=== PATIENT | female | born 1955 | race Asian ===

== ENCOUNTER 2019-08-10 17:04 | Emergency (ER) | payer OTHER ==
[~2019-08-10] VITALS: Ht 154.9 cm; Wt 91.2 kg
[2019-08-10 17:37] VITALS: Ht 154.9 cm; Wt 91.2 kg
[2019-08-10 19:07] LABS: BASOPHIL % 0.4 % (0-2); PLATELET COUNT 262 x10^3mcL (130-400); RED CELL DISTRIBUTION WIDTH 14.4 % (11.5-14.5)
[2019-08-10 19:14] LABS: CALCIUM 8.5 mg/dL (8.5-10.1); CARBON DIOXIDE 30.3 mmol/L (21-32); CHLORIDE SERUM 105 mmol/L (98-107); CREATININE SERUM 0.7 mg/dL (0.6-1.0); GFR1 > 60 mL/min; GLUCOSE SERUM 104 mg/dL (74-106); POTASSIUM SERUM 4.4 mmol/L (3.5-5.1); SODIUM SERUM 141 mmol/L (136-145)
[2019-08-10 19:18] LABS: ALBUMIN 2.9 g/dL (3.4-5.0); ALKALINE PHOSPHATASE 149 U/L (46-116); ALT/SGPT 30 U/L (14-59); AST/SGOT 73 U/L (15-37); BILIRUBIN TOTAL 0.6 mg/dL (0.20-1.00); LIPASE 254 IU/L (73-393); TOTAL PROTEIN, SERUM 8.1 g/dL (6.4-8.2)
[2019-08-10 20:11] LABS: microscopic required? YES; urine erythrocyte NEGATIVE (NEGATIVE)
[2019-08-10 21:48] VITALS: BP 126/66
== END 2019-08-10 21:48 | disposition home or self-care (01) ==
LOC: ED 17:04
PROVIDERS: Emergency Medicine
DX: N39.0 Urinary tract infection, site not specified (principal); K82.9 Disease of gallbladder, unspecified; Z90.710 Acquired absence of both cervix and uterus; Z98.890 Other specified postprocedural states
CPT/HCPCS: J1885; J3490; J7030; Q0092

== ENCOUNTER 2019-08-14 02:15 | Inpatient (IN) | payer OTHER ==
[~2019-08-14] VITALS: Ht 154.9 cm; Wt 91.9 kg
[2019-08-14 02:22] VITALS: Ht 154.9 cm; Wt 91.9 kg
[2019-08-14 02:55] LABS: BASOPHIL % 0.3 % (0-2); PLATELET COUNT 300 x10^3mcL (130-400); RED CELL DISTRIBUTION WIDTH 14.2 % (11.5-14.5)
[2019-08-14 02:57] LABS: CALCIUM 8.8 mg/dL (8.5-10.1); CARBON DIOXIDE 29.6 mmol/L (21-32); CHLORIDE SERUM 104 mmol/L (98-107); CREATININE SERUM 0.6 mg/dL (0.6-1.0); GFR1 > 60 mL/min; GLUCOSE SERUM 116 mg/dL (74-106); POTASSIUM SERUM 3.7 mmol/L (3.5-5.1); SODIUM SERUM 142 mmol/L (136-145)
[2019-08-14 03:02] LABS: ALBUMIN 3.4 g/dL (3.4-5.0); ALKALINE PHOSPHATASE 227 U/L (46-116); ALT/SGPT 107 U/L (14-59); AST/SGOT 238 U/L (15-37); BILIRUBIN TOTAL 1.01 mg/dL (0.20-1.00); LIPASE 128 IU/L (73-393); TOTAL PROTEIN, SERUM 8.9 g/dL (6.4-8.2)
[2019-08-14 06:00] VITALS: BP 100/65
[2019-08-14 07:07] LABS: BASOPHIL % 0.6 % (0-2); PLATELET COUNT 231 x10^3mcL (130-400); RED CELL DISTRIBUTION WIDTH 14.3 % (11.5-14.5)
[2019-08-14 07:23] LABS: CALCIUM 7.8 mg/dL (8.5-10.1); CARBON DIOXIDE 27.1 mmol/L (21-32); CHLORIDE SERUM 109 mmol/L (98-107); CREATININE SERUM 0.6 mg/dL (0.6-1.0); GFR1 > 60 mL/min; GLUCOSE SERUM 107 mg/dL (74-106); MAGNESIUM 2.1 mg/dL (1.8-2.4); POTASSIUM SERUM 3.9 mmol/L (3.5-5.1); SODIUM SERUM 142 mmol/L (136-145)
[2019-08-14 07:24] LABS: CHOLESTEROL/HDL RATIO 3.3
[2019-08-14 08:45] VITALS: BP 115/56
[2019-08-14 12:33] LABS: microscopic required? NO
[2019-08-14 12:45] LABS: urine erythrocyte NEGATIVE (NEGATIVE)
[2019-08-14 16:59] VITALS: BP 119/55
[2019-08-14 20:46] VITALS: BP 117/45
[2019-08-15 05:14] VITALS: BP 111/57
[2019-08-15 06:35] LABS: BASOPHIL % 0.5 % (0-2); PLATELET COUNT 235 x10^3mcL (130-400)
[2019-08-15 06:52] LABS: RED CELL DISTRIBUTION WIDTH 14.7 % (11.5-14.5)
[2019-08-15 07:13] LABS: CALCIUM 8.1 mg/dL (8.5-10.1); CARBON DIOXIDE 30.5 mmol/L (21-32); CHLORIDE SERUM 110 mmol/L (98-107); CREATININE SERUM 0.5 mg/dL (0.6-1.0); GFR1 > 60 mL/min; GLUCOSE SERUM 86 mg/dL (74-106); POTASSIUM SERUM 3.9 mmol/L (3.5-5.1); SODIUM SERUM 145 mmol/L (136-145)
[2019-08-15 08:33] VITALS: BP 117/55
[2019-08-15 13:45] VITALS: BP 113/68
[2019-08-15 17:13] VITALS: BP 127/76
[2019-08-15 20:08] VITALS: BP 123/72
[2019-08-16 05:42] VITALS: BP 127/61
[2019-08-16 06:32] LABS: BASOPHIL % 0.4 % (0-2); PLATELET COUNT 242 x10^3mcL (130-400); RED CELL DISTRIBUTION WIDTH 14.4 % (11.5-14.5)
[2019-08-16 06:56] LABS: ALKALINE PHOSPHATASE 158 U/L (46-116); ALT/SGPT 64 U/L (14-59); AMYLASE 45 U/L (25-115); AST/SGOT 36 U/L (15-37); BILIRUBIN TOTAL 0.59 mg/dL (0.20-1.00); CALCIUM 8.2 mg/dL (8.5-10.1); CARBON DIOXIDE 29.3 mmol/L (21-32); CHLORIDE SERUM 109 mmol/L (98-107); CREATININE SERUM 0.5 mg/dL (0.6-1.0); GFR1 > 60 mL/min; GLUCOSE SERUM 78 mg/dL (74-106); LIPASE 57 IU/L (73-393); MAGNESIUM 2.2 mg/dL (1.8-2.4); PHOSPHOROUS 2.9 mg/dL (2.5-4.9); SODIUM SERUM 144 mmol/L (136-145)
[2019-08-16 06:57] LABS: ALBUMIN 2.6 g/dL (3.4-5.0)
[2019-08-16 07:44] VITALS: BP 115/54
[2019-08-16] MEDS ORDERED: PANTOPRAZOLE SO40 M1 PO (10:35)
[2019-08-16] MEDS ORDERED: IMURAN50 MG PO (10:39)
[2019-08-16 11:17] VITALS: BP 115/54
== END 2019-08-16 13:09 | disposition home or self-care (01) | DRG 445 ==
LOC: ED 02:15 → MU 04:08
PROVIDERS: Emergency Medicine; Internal Medicine; ADMIT General Practice
PROC: 0DB68ZX Excision of Stomach, Via Natural or Artificial Opening Endoscopic, Diagnostic (ICD-10-PCS; 2019-08-15)
PROC: 0F798ZZ Dilation of Common Bile Duct, Via Natural or Artificial Opening Endoscopic (ICD-10-PCS; principal; 2019-08-15 11:30)
PROC: BF10YZZ Fluoroscopy of Bile Ducts using Other Contrast (ICD-10-PCS; 2019-08-15 11:30)
DX: K80.50 Calculus of bile duct without cholangitis or cholecystitis without obstruction (principal); N39.0 Urinary tract infection, site not specified; K29.60 Other gastritis without bleeding; R74.0 Nonspecific elevation of levels of transaminase and lactic acid dehydrogenase [LDH]; K75.4 Autoimmune hepatitis; Z68.37 Body mass index [BMI] 37.0-37.9, adult; Z96.651 Presence of right artificial knee joint
CPT/HCPCS: 43262; C1769; G0378; J1170; J1610; J2270; J2405; J2543; J2704; J7030; J7120; Q0092; Q9967